=== PATIENT | male | born 1965 | race Caucasian/White ===

== ENCOUNTER 2021-12-29 08:56 | Outpatient (CLI) | payer MEDICAID ==
[~2021-12-29 08:56] MED LIST: DIVA125T2 PO; DIVA500T2 PO; KEP500T PO
== END 2021-12-29 23:59 | disposition home or self-care (01) ==
LOC: RAD 08:56
PROVIDERS: ATTEND Family Medicine
DX: G40.909 Epilepsy, unspecified, not intractable, without status epilepticus (principal); R25.1 Tremor, unspecified
CPT/HCPCS: 95819